=== PATIENT | male | born 2000 | race Caucasian/White ===

== ENCOUNTER 2021-07-13 22:48 | Inpatient (IN) ==
[2021-07-13] MEDS ORDERED: Tdap (Boostrix) Vaccine 0.5 ML SYRINGE IM ONE (22:56)
[2021-07-13 23:38] LABS: Basophils # 0.1 K/mcL (0.0-0.2); Basophils % 0.4 %; Eosinophils # 0.2 K/mcL (0.0-0.6); Hematocrit 49.8 % (37.5-50.1); Hemoglobin 17.1 g/dL (12.9-16.9); Immature Granulocytes % 0.5 % (0-4); Lymphocytes # 0.8 K/mcL (0.6-4.6); Lymphocytes % 4.8 %; Mean Corpuscular HGB Conc 34.3 g/dL (31.6-35.5); Mean Corpuscular Hemoglobin 30.5 pg (28.0-33.3); Mean Corpuscular Volume 88.9 fL (83.0-100.0); Mean Platelet Volume 8.4 fL (9.4-12.4); Monocytes # 1.1 K/mcL (0.0-1.3); Monocytes % 6.3 %; Neutrophils # 14.7 K/mcL (1.6-8.9); Platelet Count 359 K/mcL (140-400); Red Cell Distribution Width 12.6 % (11.5-14.5); White Blood Count 16.9 K/mcL (4.3-11.1)
[2021-07-13 23:38] LABS: Bacteria,Urine Few per hpf (None-Few); Bilirubin,Urine Negative (Negative); Blood,Urine Negative (Negative); Clarity,Urine Clear (Clear); Color,Urine Light-Yellow (Yellow); Glucose,Urine (UA) Normal (Normal); Ketones,Urine Negative (Negative); Leukocyte Esterase,Urine Negative (Negative); Mucus,Urine Few per lpf (None-Few); Nitrite,Urine Negative (Negative); Protein,Urine 30 mg/dL (Neg-Trace); Specific Gravity,Urine 1.015 (1.010-1.025); Urobilinogen,Urine Normal (Normal); WBC,Urine 0-3 per hpf (0-3)
[2021-07-13 23:49] LABS: Amphetamine Screen,Urine Negative ng/mL (Cutoff=1000); Barbiturate Screen,Urine Negative ng/mL (Cutoff=200); Benzodiazepines Screen,Urine Negative ng/mL (Cutoff=200); Cannabinoid Screen,Urine Positive ng/mL (Cutoff = 50); Cocaine Screen,Urine Negative ng/mL (Cutoff= 300); Opiate Screen,Urine Negative ng/mL (Cutoff=300); Phencyclidine Screen,Urine Negative ng/mL (Cutoff=25)
[2021-07-13 23:52] LABS: Estimated Average Glucose 94 mg/dl; Hemoglobin A1C 4.9 %
[2021-07-13 23:56] LABS: Acetaminophen < 10 mcg/mL (10-20); BUN/Creatinine Ratio 9 (6-26); Blood Urea Nitrogen 9 mg/dL (6-20); Calcium 9.5 mg/dL (8.6-10.3); Carbon Dioxide 27 mEq/L (23-29); Chloride 101 mEq/L (98-107); Chol/HDL Ratio 3.5 (0-4.9); Cholesterol 121 mg/dL (< 200); Ethanol < 10 mg/dL (Less than 10); Glucose 103 mg/dL (70-105); HDL Cholesterol 35 mg/dL (40-59); LDL Cholesterol,Calculated 54 mg/dL (< 100); Osmolality,Calculated 283 (280-300); Potassium 3.5 mEq/L (3.5-5.1); Salicylate < 2.5 mg/dL (15.0-30.0); Sodium 137 mEq/L (136-145); Triglycerides 160 mg/dL (< 150); eGFR For African Americans > 60 (> 60); eGFR For Non-African Americans > 60 (> 60)
[2021-07-14 02:04] LABS: Influenza A PCR Negative (Negative); Influenza B PCR Negative (Negative); Resp. Syncytial Virus PCR Negative (Negative)
[2021-07-14 02:06] LABS: SARS-CoV-2 by PCR (In House) Negative (Negative)
[2021-07-14] MEDS ORDERED: traZODone 50 MG TABLET PO PRN (02:40)
[2021-07-14] MEDS ORDERED: *HR* LORazepam 1 MG TABLET PO PRN (02:40)
[2021-07-14] MEDS ORDERED: Haloperidol Lactate 5 MG/ML VIAL IM PRN (02:40)
[2021-07-14] MEDS ORDERED: *HR* LORazepam 2 MG/ML VIAL IM PRN (02:40)
[2021-07-14] MEDS ORDERED: haloperidoL 5 MG TABLET PO PRN (02:40)
[2021-07-14] MEDS: Ibuprofen 400 MG TABLET PO PRN ×2 (04:39→20:44)
[2021-07-14] MEDS ORDERED: MOM Conc 10 ML UD.LIQ PO PRN (10:35)
[2021-07-14] MEDS ORDERED: Mag Hydrox/Al Hydrox/Simeth 30 ML UDC PO PRN (10:35)
[2021-07-14] MEDS: Folic Acid 1 MG TABLET PO SCH (11:15)
[2021-07-14] MEDS: Thiamine (B-1) 100 MG TABLET PO SCH (11:15)
[2021-07-14] MEDS: Nicotine 2 MG GUM BC PRN ×3 (11:16→18:09)
[2021-07-14 14:35] LABS: Chlamydia Trachomatis DNA Ur NOT DETECTED (Not Detect)
[2021-07-14] MEDS: hydrOXYzine pamoate 25 MG CAPSULE PO PRN (20:45)
[2021-07-14] MEDS: traZODone 50 MG TABLET PO SCH ×2 (20:45→22:26)
[2021-07-15] MEDS: Thiamine (B-1) 100 MG TABLET PO SCH (09:09)
[2021-07-15] MEDS: Nicotine 2 MG GUM BC PRN ×3 (09:09→19:55)
[2021-07-15] MEDS: Folic Acid 1 MG TABLET PO SCH (09:09)
[2021-07-15] MEDS: Neosporin OINT 15 GM TUBE TP PRN (16:43)
[2021-07-15] MEDS: traZODone 50 MG TABLET PO SCH (20:51)
[2021-07-15] MEDS: hydrOXYzine pamoate 25 MG CAPSULE PO PRN (20:51)
[2021-07-16] MEDS: Folic Acid 1 MG TABLET PO SCH (08:16)
[2021-07-16] MEDS: Thiamine (B-1) 100 MG TABLET PO SCH (08:16)
[2021-07-16] MEDS: Nicotine 2 MG GUM BC PRN ×2 (08:16→11:44)
[2021-07-16] MEDS: Neosporin OINT 15 GM TUBE TP PRN (08:48)
[2021-07-16 12:02] VITALS: BP 137/77; PULSE 59; TEMP 97.5; O2SAT 98
== END 2021-07-16 13:47 | disposition home or self-care (01) | DRG 751 ==
LOC: EMEROOARM 22:48 → 1ANU 07-14 02:18
PROVIDERS: ADMIT Psychiatry & Neurology Psychiatry; ATTEND Psychiatry & Neurology Psychiatry